=== PATIENT | female | born 1985 | race Hispanic/Latino ===

== ENCOUNTER 2017-01-28 10:31 | Emergency (ER) | payer OTHER ==
[2017-01-28 10:38] VITALS: BP 102/69; PULSE 77; TEMP 98
[2017-01-28 10:53] VITALS: O2SAT 98
--- NOTE | 2017-01-28 11:08 | ED PDOC ---
HPI: Abdomen Time Seen by Provider: 01/28/17 10:59 Chief Complaint (Nursing): Abdominal Pain Chief Complaint (Provider): with abdominal pain History Per: Patient Additional Complaint(s): 31 year old female currently 11 weeks presents to ED with diffuse cramping abdominal pain that started this morning with no associated bleeding. Patient denies any dysuria or hematuria. Patient has a doppler at home and this morning she tried to locate the heartbeat and she was unable to. She called her OB, Dr. Davidson who told her to come to ED. Past Medical History Reviewed: Historical Data, Nursing Documentation, Vital Signs Vital Signs: Last Vital Signs Temp 98 F 01/28/17 10:37 Pulse 77 01/28/17 10:37 Resp BP 102/69 01/28/17 10:37 Pulse Ox 98 01/28/17 11:30 - Medical History PMH: Hypothyroidism Other PMH: (1 miscarriage, lost 1 fetus in utero during second ) - Surgical History Surgical History: Hernia Repair - Family History Family History: States: No Known Family Hx - Living Arrangements Living Arrangements: With Family - Social History Current smoker - smoking cessation education provided: No Alcohol: None Drugs: Denies - Home Medications Home Medications: Ambulatory Orders Medication Instructions Recorded Ca/Cholecalciferol/Fe/Folic 1 1 tab PO DAILY 04/03/15 [Basic's Vitamins] Levothyroxine [Levoxyl] 0.125 mg PO DAILY 04/03/15 Metformin HCl [Metformin] 1,000 mg PO BID 04/03/15 - Allergies Allergies/Adverse Reactions: Allergies Allergy/AdvReac Type Severity Reaction Status Date / Time No Known Allergies Allergy Verified 04/03/15 14:58 Review of Systems ROS Statement: Except As Marked, All Systems Reviewed And Found Negative Constitutional: Negative for: Fever Cardiovascular: Negative for: Chest Pain Gastrointestinal: Positive for: Abdominal Pain. Negative for: Nausea, Vomiting Genitourinary Female: Positive for: Pelvic Pain. Negative for: Dysuria, Frequency, Incontinence, Hematuria, Vaginal Discharge, Vaginal Bleeding Physical Exam - Reviewed Nursing Documentation Reviewed: Yes Vital Signs Reviewed: Yes - Physical Exam Appears: Positive for: Well, Non-toxic, No Acute Distress Skin: Negative for: Rash Cardiovascular/Chest: Positive for: Regular Rate, Rhythm Respiratory: Positive for: Normal Breath Sounds Gastrointestinal/Abdominal: Positive for: Other (gravid non-tender abdomen) Back: Negative for: L CVA Tenderness, R CVA Tenderness Extremity: Negative for: Pedal Edema Neurologic/Psych: Positive for: Alert, Oriented - Laboratory Results Result Diagrams: 01/28/17 11:30 - ECG O2 Sat by Pulse Oximetry: 98 Pulse Ox Interpretation: Normal - Other Rad OB US X-Ray: Read By Radiologist X-Ray Interpretation: see below Medical Decision Making Medical Decision Makin31 year old with abd pain Plan: CBC CMP Beta quant Urine dip OB US US: Impression: Live single intrauterine with estimated gestational age 11 weeks 3 days. heart rate 169 bpm. Advise an anomaly screen at 16- 18 weeks gestational age Patient is aware of all diagnostic testing results, all questions answered. CMP would not result electronically, lab faxed results, reviewed by me, all within normal limits. Case was also discussed with patient's OB, Dr. Davidson. He is aware of all diagnostic testing results and states to have patient call his office on Tuesday for follow up visit for next week. Disposition - Clinical Impression Clinical Impression: Abdominal pain during - Patient ED Disposition Is Patient to be Admitted: No Counseled Patient/Family Regarding: Studies Performed, Diagnosis, Need For Followup - Disposition Referrals: Kem Davidson MD [Staff Provider] - Disposition: Routine/Home Disposition Time: 13:10 Condition: STABLE Additional Instructions: Call OB office on Tuesday to arrange for follow up visit for next week. Instructions: Abdominal Pain in (ED) Results - Lab Results Lab Results: 01/28/17 01/28/17 11:35 11:30 WBC 8.9 D RBC 4.11 Hgb 12.3 Hct 36.4 MCV 88.6 D MCH 30.0 MCHC 33.8 RDW 13.9 Plt Count 299 D MPV 7.8 Neut % (Auto) 69.0 Lymph % (Auto) 22.3 Terrell % (Auto) 7.3 Eos % (Auto) 1.0 Baso % (Auto) 0.4 Neut # 6.1 Lymph # 2.0 Terrell # 0.6 Eos # 0.1 Baso # 0.0 Urine Color Straw Urine Clarity Clear Urine pH 6.0 Ur Specific [place] 1.008 Urine Protein Negative Urine Glucose (UA) Neg Urine Ketones Negative Urine Blood Negative Urine Nitrate Negative Urine Bilirubin Negative Urine Urobilinogen 0.2-1.0 Ur Leukocyte Esterase Trace Urine RBC (Auto) 1 Urine Microscopic WBC 1 Ur Squamous Epith Cells 1 Urine Bacteria Rare
[2017-01-28 12:28] LABS: BASO % 0.4 % (0.0-2.0); EOS # 0.1 K/uL (0.0-0.7); HEMATOCRIT 36.4 % (34.0-47.0); LYMPH % 22.3 % (20.0-40.0); MEAN CELL VOLUME 88.6 fl (81.0-99.0); MEAN CORPUSCULAR HGB CONC 33.8 g/dL (33.0-37.0); MEAN PLATELET VOLUME 7.8 fl (7.2-11.7); MONO # 0.6 K/uL (0.0-0.8); MONO % 7.3 % (0.0-10.0); NEUT # 6.1 K/uL (1.8-7.0); RED CELL DISTRIBUTION WIDTH 13.9 % (11.5-14.5); WHITE BLOOD COUNT 8.9 K/uL (4.8-10.8)
[2017-01-28 12:34] LABS: RBC URINE 1 /hpf (0-3); URINE BACTERIA RARE (<OCC); URINE BILIRUBIN NEGATIVE (NEGATIVE); URINE BLOOD NEGATIVE (NEGATIVE); URINE COLOR STRAW (YELLOW); URINE GLUCOSE (UA) NEG (Normal); URINE KETONE NEGATIVE (NEGATIVE); URINE LEUKOCYTE ESTERASE TRACE Leu/uL (Negative); URINE PROTEIN NEGATIVE (NEGATIVE); URINE UROBILINOGEN 0.2-1.0 mg/dL (0.2-1.0); WBC URINE 1 /hpf (0-5)
--- NOTE | 2017-01-28 12:35 | US ---
Indication: 11 weeks with cramping abdominal pain Comparison: None available Technique: Transvaginal pelvic ultrasound Findings: There is a single intrauterine fetus present. 4 mm yolk sac. The gestational sac measures 5.7 cm and is compatible with a gestational age of 11 weeks 5 days. The crown-rump length measures 4.1 cm and is compatible with a gestational age of 11 weeks 0 days. There is heart motion which measured 169 BPM. The right ovary measures 3.1 x 1.2 x 2.5 cm. The left ovary measures 2.5 x 1.5 x 2.1 cm and contains 1.3 x 10.9 x 1.5 cm probable corpus luteal cyst. Blood flow was demonstrated to both ovaries. Cervix length measures approximately 4.6 cm. Impression: Live single intrauterine with estimated gestational age 11 weeks 3 days. heart rate 169 bpm. Advise an anomaly screen at 16-18 weeks gestational age
[2017-01-28 12:37] LABS: ALB/GLOB RATIO 1.4 (1.0-2.1); ALKALINE PHOSPHATASE 42 U/L (38-126); ALT/SGPT 29 U/L (9-52); AST/SGOT 24 U/L (14-36); BLOOD UREA NITROGEN 9 mg/dl (7-17); CARBON DIOXIDE 24 mmol/L (22-30); CHLORIDE 103 mmol/L (98-107); GFR AFRICAN-AMERICAN > 60; GLUCOSE,RANDOM 85 mg/dL (65-105); SODIUM 137 mmol/l (132-148); TOTAL PROTEIN 7.4 G/DL (6.3-8.2)
== END 2017-01-28 13:20 | disposition home or self-care (01) ==
LOC: H.ER 10:31
DX: O26.891 Other specified pregnancy related conditions, first trimester (principal); R10.9 Unspecified abdominal pain; Z3A.11 11 weeks gestation of pregnancy

== ENCOUNTER 2017-05-16 16:21 | Emergency (ER) | payer OTHER ==
[2017-05-16 22:43] VITALS: BP 99/64; PULSE 77
== END 2017-05-16 18:30 | disposition home or self-care (01) ==
LOC: H.EROB2 16:21
DX: O47.02 False labor before 37 completed weeks of gestation, second trimester (principal); Z3A.27 27 weeks gestation of pregnancy

== ENCOUNTER 2017-07-06 09:23 | Emergency (ER) | payer OTHER ==
[2017-07-06 09:43] VITALS: BP 108/62
[2017-07-06 10:50] LABS: BASO % 0.2 % (0.0-2.0); EOS # 0.1 K/uL (0.0-0.7); EOS % 0.4 % (0.0-4.0); HEMATOCRIT 32.7 % (34.0-47.0); LYMPH # 1.7 K/uL (1.0-4.3); LYMPH % 12.3 % (20.0-40.0); MEAN CELL VOLUME 88.8 fl (81.0-99.0); MEAN CORPUSCULAR HEMOGLOBIN 30.4 pg (27.0-31.0); MEAN CORPUSCULAR HGB CONC 34.3 g/dL (33.0-37.0); MEAN PLATELET VOLUME 8.5 fl (7.2-11.7); MONO # 0.9 K/uL (0.0-0.8); MONO % 6.3 % (0.0-10.0); NEUT # 10.9 K/uL (1.8-7.0); NEUT % 80.8 % (50.0-75.0); RED CELL DISTRIBUTION WIDTH 13.7 % (11.5-14.5); WHITE BLOOD COUNT 13.5 K/uL (4.8-10.8)
[2017-07-06 11:01] LABS: BLOOD UREA NITROGEN 7 mg/dl (7-17); CALCIUM 8.8 mg/dL (8.4-10.2); CARBON DIOXIDE 22 mmol/L (22-30); CHLORIDE 107 mmol/L (98-107); GFR AFRICAN-AMERICAN > 60; GLUCOSE,RANDOM 108 mg/dL (65-105); POTASSIUM 3.9 MMOL/L (3.6-5.0); SODIUM 136 mmol/l (132-148)
--- NOTE | 2017-07-06 11:09 | ED PDOC ---
HPI: SOB/CHF/COPD Time Seen by Provider: 07/06/17 09:54 Chief Complaint (Nursing): Shortness Of Breath Chief Complaint (Provider): Shortness of breath, congestion, dizziness History Per: Patient History/Exam Limitations: no limitations Onset/Duration Of Symptoms: Days, Persistent Additional Complaint(s): 31yo female, , no past medical history, approximately 34 weeks , presents to ED with complaints of congestion, shortness of breath and dizziness which has been worsening over the past week. Patient states it has been increasingly difficult to sleep at night; reports she tried nasal saline with no relief. She states this morning while attempting to get ready for work, she had a pre-syncopal episode, prompting the visit. Patient states her current is unremarkable and she follows up with Dr. Davidson. Patient also states she felt her baby move normally. She additionally reports her first was normal as well. Patient reports mild bilateral leg swelling, denies any vaginal bleeding, contractions, chest pain. No other complaints. Past Medical History Reviewed: Historical Data, Nursing Documentation, Vital Signs Vital Signs: Last Vital Signs Temp 98.1 F 07/06/17 09:40 Pulse 108 H 07/06/17 09:40 Resp 18 07/06/17 09:40 BP 108/62 07/06/17 09:40 Pulse Ox 99 07/06/17 09:40 - Medical History PMH: Hypothyroidism - Surgical History Surgical History: Hernia Repair - Family History Family History: States: No Known Family Hx - Living Arrangements Living Arrangements: With Family - Social History Current smoker - smoking cessation education provided: No Ex-Smoker (has not smoked in the last 12 months): No Alcohol: None Drugs: Denies - Home Medications Home Medications: Ambulatory Orders Medication Instructions Recorded Ca/Cholecalciferol/Fe/Folic 1 1 tab PO DAILY 04/03/15 [Basic's Vitamins] Levothyroxine [Levoxyl] 0.125 mg PO DAILY 04/03/15 Metformin HCl [Metformin] 1,000 mg PO BID 04/03/15 - Allergies Allergies/Adverse Reactions: Allergies Allergy/AdvReac Type Severity Reaction Status Date / Time No Known Allergies Allergy Verified 07/06/17 09:40 Review of Systems ROS Statement: Except As Marked, All Systems Reviewed And Found Negative ENT: Positive for: Nose Congestion Cardiovascular: Negative for: Chest Pain Respiratory: Positive for: Cough, Shortness of Breath Genitourinary Female: Negative for: Vaginal Bleeding, Other (contractions) Musculoskeletal: Positive for: Other (bilateral leg swelling) Neurological: Positive for: Dizziness Physical Exam - Reviewed Nursing Documentation Reviewed: Yes Vital Signs Reviewed: Yes - Physical Exam Appears: Positive for: Non-toxic, No Acute Distress Head Exam: Positive for: ATRAUMATIC, NORMAL INSPECTION, NORMOCEPHALIC Skin: Positive for: Normal Color. Negative for: Pallor Eye Exam: Positive for: Normal appearance ENT: Positive for: Pharyngeal Erythema, Other (right nasal turbinate cloggy and edematous; left nasal turbinate erythematous but clear.). Negative for: Tonsillar Exudate Neck: Positive for: Supple Cardiovascular/Chest: Positive for: Regular Rate, Rhythm Respiratory: Positive for: Normal Breath Sounds. Negative for: Respiratory Distress Gastrointestinal/Abdominal: Positive for: Soft, Other (gravid uterus). Negative for: Tenderness - Laboratory Results Result Diagrams: 07/06/17 10:40 07/06/17 10:40 - ECG ECG: Positive for: Interpreted By Me, Viewed By Me ECG Rhythm: Positive for: Normal QRS, Sinus Rhythm. Negative for: ST/T Changes Rate: 97 O2 Sat by Pulse Oximetry: 99 (RA) Pulse Ox Interpretation: Normal Medical Decision Making Medical Decision Making: Time: 1021 Impression: Rule out anemia Plan: -- Labs to rule out anemia -- Cardiac montior -- monitor in OB ED Reassess Scribe Attestation: Documented by Vicky Brown acting as a scribe for Saji Al DO. Provider Attestation: All medical record entries made by the Scribe were at my direction and personally dictated by me. I have reviewed the chart and agree that the record accurately reflects my personal performance of the history, physical exam, medical decision making, and the department course for this patient. I have also personally directed, reviewed, and agree with the discharge instructions and disposition. Disposition - Disposition
--- NOTE | 2017-07-06 12:51 | CARD ---
APPROVED REPORT EKG Measurement Heart [id number] <Conclusion> Normal sinus rhythm Possible Left atrial enlargement Borderline ECG
--- NOTE | 2017-07-06 14:40 | OBHP ---
Datetime: 07/06/2017 14:35 IP Adm Impression: , intrauterine ; No Active Labor IP Admit Plan: Observation/Evaluation; Discharge home Admit Comment, IP Provider: The patient is a 2 para 1 estimated due date 08/16/2017 estimate d gestational age 34 weeks patient presented to emergency room complaining of cough and congestion ti mes several days duration. Patient was evaluated in the emergency room and then transferred to labor and delivery for evaluation. Patient reports good movement no vaginal bleeding or leakage of fluid patient's sister care has been unremarkable. Past medical history hypothyroid Medications vitamins and Synthroid No known drug allergies Social history denies alcohol tobacco use Past surgical history hernia repair Review of systems patient denies headache chest pain palpitations nausea vomiting diarrhea vaginal bleeding heat or cold intolerance easy bruisability musculoskeletal or neurological complaints Vital signs stable afebrile Physical exam seeing its Intrauterine at 34 weeks viral syndrome NST reactive Patient noted to have occasional uterine contractions patient exam his cervix closed posterior cole g Patient to follow up with PMDD tomorrow labor precautions Pelvic Type - PN: Adequate Extremities - PN: Normal Abdomen - PN: Normal Back - PN: Normal Breast - PN: Normal Lungs - PN: Normal Heart - PN: Normal Thyroid - PN: Normal Neurologic - PN: Normal HEENT - PN: Normal General - PN: Normal FHR - Baseline A Provider: 145 Gestation - Est Wks by US: 34.0 Pool Provider: Negative EGA AdmitDate IP: 34.1 Vital Signs Provider: Reviewed IP Chief Complaint: Other NICHD Variability Prov Fetus A: Moderate 6-25bpm NICHD Accel Fetus A IP Provider: 10X10 FHR Category Provider Fetus A: Category I NICHD Decel Fetus A IP Provider: None Dilatation, Provider: 0 Effacement, Provider: 0 Station, Provider: -2 Genitourinary Exam: Normal DTRs - PN: Normal
[2017-07-06 19:32] VITALS: PULSE 88; RESP 17; TEMP 98.5; O2SAT 98
== END 2017-07-06 15:10 | disposition home or self-care (01) ==
LOC: H.EROB2 09:23 → H.ER 09:23 → H.EROB 12:38 → H.ER 12:38 → H.EROB2 15:10
DX: O26.93 Pregnancy related conditions, unspecified, third trimester (principal); R10.2 Pelvic and perineal pain; R05 Cough; O47.03 False labor before 37 completed weeks of gestation, third trimester; Z3A.34 34 weeks gestation of pregnancy

== ENCOUNTER 2017-07-31 15:14 | Emergency (ER) | payer OTHER ==
--- NOTE | 2017-07-31 17:20 | OBHP ---
Datetime: 07/31/2017 17:09 IP Adm Impression: Term, intrauterine IP Admit Plan: Observation/Evaluation; Discharge home Admit Comment, IP Provider: Pt of dr chadwick. The patient is a 31 yo 2 para 1 estimated due date 08/16/2017 by lmp _ 12wk us presents at estimated gestational age 37.5 weeks w/ c/o increased movement since last night. She states usually she is concerned about decreased FM with this pr eg but since last night she has had increased fm. She states currently FM is normal and not increase d. She denies prom, vag bleeding. 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 pt seen earlier by dr singleton Extremities - PN: Normal Abdomen - PN: Normal Lungs - PN: Normal Neurologic - PN: Normal HEENT - PN: Normal General - PN: Normal FHR - Baseline A Provider: 120 EGA AdmitDate IP: 37.5 Vital Signs Provider: Within Normal Limits IP Chief Complaint: Other NICHD Variability Prov Fetus A: Moderate 6-25bpm NICHD Accel Fetus A IP Provider: 15X15 FHR Category Provider Fetus A: Category I
[2017-08-02 12:38] VITALS: BP 122/76; PULSE 71
== END 2017-07-31 17:10 | disposition home or self-care (01) ==
LOC: H.EROB2 15:14
DX: O36.8931 Maternal care for other specified fetal problems, third trimester, fetus 1 (principal); Z3A.37 37 weeks gestation of pregnancy; O76 Abnormality in fetal heart rate and rhythm complicating labor and delivery

== ENCOUNTER 2017-08-15 10:23 | Inpatient (IN) | payer OTHER ==
[2017-08-15 11:23] VITALS: BMI 25.5
[2017-08-15 12:44] LABS: BASO % 0.2 % (0.0-2.0); EOS % 0.3 % (0.0-4.0); HEMOGLOBIN 11.9 g/dL (12.0-16.0); LYMPH # 2.1 K/uL (1.0-4.3); LYMPH % 16.2 % (20.0-40.0); MEAN CELL VOLUME 89.3 fl (81.0-99.0); MEAN CORPUSCULAR HEMOGLOBIN 30.5 pg (27.0-31.0); MEAN CORPUSCULAR HGB CONC 34.1 g/dL (33.0-37.0); MEAN PLATELET VOLUME 9.1 fl (7.2-11.7); MONO # 0.9 K/uL (0.0-0.8); NEUT # 9.8 K/uL (1.8-7.0); NEUT % 76.3 % (50.0-75.0); NRBC % 0.1 % (0.0-0.0); RBC 3.89 Mil/uL (3.80-5.20); RED CELL DISTRIBUTION WIDTH 13.8 % (11.5-14.5); WHITE BLOOD COUNT 12.9 K/uL (4.8-10.8)
[2017-08-15] MEDS: Lactated Ringer's 1,000 ML IV SCH (13:05)
--- NOTE | 2017-08-15 21:52 | OBADHP ---
Datetime: 08/15/2017 21:43 IP Chief Complaint Other: hypothyroidism IP Adm Impression Other: hypothyroidism/ decreased FM in very early labor Admit Comment, IP Provider: admit to unit and start augumentation with cervidil Discussed with pt an d agreed Extremities - PN: Normal Abdomen - PN: Abnormal Back - PN: Normal Breast - PN: Normal Lungs - PN: Normal Heart - PN: Normal Thyroid - PN: Normal Neurologic - PN: Normal HEENT - PN: Normal General - PN: Normal Presentation-Admit: cephalic FHR - Baseline A Provider: 150 Membranes, Provider: Intact Contraction Comments Provider: irregular Comments, ACOG Physical Exam: Abd gravid NT fundus at term, Ext no calf tenderness Gestation - Est Wks by US: 39w 6d Pool Provider: Negative IP Hx Assessment: The History has been Reviewed and is Current IP Chief Complaint: Decreased movement; Maternal discomfort; Other NICHD Variability Prov Fetus A: Moderate 6-25bpm NICHD Accel Fetus A IP Provider: 10X10 NICHD Decel Fetus A IP Provider: None Dilatation, Provider: 1cm Effacement, Provider: 40% Genitourinary Exam: Normal DTRs - PN: Normal EGA AdmitDate IP: 39.6 IP Adm Impression: Term, intrauterine IP Admit Plan: Admit to unit; Initiate labor augmentation protocol Datetime: 07/31/2017 17:09 Vital Signs Provider: Within Normal Limits FHR Category Provider Fetus A: Category I Datetime: 07/06/2017 14:35 Pelvic Type - PN: Adequate Station, Provider: -2
[2017-08-16] MEDS: Lactated Ringer's 1,000 ML IV ONE ×2 (05:55→06:15)
[2017-08-16] MEDS ORDERED: Oxytocin 30 UNITS in Sodium Chloride 0.9% 500 ML IV ONE (05:56)
[2017-08-16] MEDS ORDERED: Fentanyl/Bupivacaine HCl 250 ML EPI ONE (05:59)
[2017-08-16] MEDS ORDERED: Bupivacaine HCl 0.25% PF (10 ml) Inj ONE (06:19)
[2017-08-16] MEDS: Lactated Ringer's 1,000 ML IV SCH ×2 (06:53→07:15)
[2017-08-16] MEDS ORDERED: Lidocaine 2% Inj (20ml) ONE ×2 (07:26→07:55)
[2017-08-16] MEDS ORDERED: Lidocaine 2% PF (10 ml) Amp ONE (07:27)
[2017-08-16] MEDS ORDERED: Oxycodone/Acetaminophen 5/325 mg Tab PO PRN ×2 (08:30→13:09)
[2017-08-16] MEDS ORDERED: Benzocaine/Menthol SPRAY TOP PRN ×2 (08:30→13:09)
--- NOTE | 2017-08-16 08:30 | OBDS ---
MATERNAL INFORMATION Delivery Anesthesia: Epidural Estimated Blood Loss (ml): 200-250 Other Maternal Complications: thyroid disease Provider Comments: Delivered a living baby girl appears term cried spontaneously nuchal cord x1 loos e, 9/9, AF clear Placenta complete and intact Small laceration repaired as above Uterus contrac kirstie well, rectal exam done no defects Tolerated procedure well no complications LABOR SUMMARY EDC: 08/16/2017 00:00 No. Babies in Womb: 1 Attempted: No Labor Anesthesia: Epidural LABOR INFORMATION Reason for Induction: Not Applicable; Other Reason for Induction Other: Decreased movement as per MD Office vst 08/15/17 Cervical Ripening Agents: Cervidil Oxytocin: N/A Group B Beta Strep: Negative Steroids Given: None Reason Steroids Not Administered: Not Applicable VAGINAL DELIVERY Episiotomy: None Laceration Extension: First Degree Laceration Type: Perineal; Vaginal Laceration Repair: Yes Laceration Repair Note: small vaginal-perineal tear noted first dg repaired with 2-0 chromic without any complication Sponge Count Correct: Yes Sharps Count Correct: Yes Count Comment: count correct verified by RN CSECTION DELIVERY Primary Indication: N/A Secondary Indication: N/A CSection Incision: N/A Uterine Closure: N/A BABY A INFORMATION Forceps: N/A Vacuum Extraction: N/A Shoulder Dystocia : No PRESENTATION/POSITION BABY A Presentation: Cephalic Cephalic Presentation: Vertex Vertex Position: Left Occipital Anterior Breech Presentation: N/A PLACENTA INFORMATION BABY A Placenta Method of Delivery: Spontaneous Placenta Status: Delivered CORD INFORMATION BABY A Nuchal Cord : Around Neck x1, Loose
[2017-08-17 06:25] LABS: HEMOGLOBIN 9.7 g/dL (12.0-16.0); MEAN CELL VOLUME 90.4 fl (81.0-99.0); MEAN CORPUSCULAR HEMOGLOBIN 29.6 pg (27.0-31.0); MEAN CORPUSCULAR HGB CONC 32.8 g/dL (33.0-37.0); RBC 3.28 Mil/uL (3.80-5.20); RED CELL DISTRIBUTION WIDTH 13.9 % (11.5-14.5); WHITE BLOOD COUNT 13.5 K/uL (4.8-10.8)
[2017-08-17] MEDS: Levothyroxine 125 MCG TAB PO SCH (06:29)
[2017-08-17] MEDS ORDERED: Levothyroxine 125 MCG TAB PO SCH (06:30)
--- NOTE | 2017-08-17 07:25 | OBPPN ---
Datetime: 08/17/2017 07:21 PP Pain Prov: Within normal limits PP Pain Prov comment: No SOB, chest or leg pains PP Nausea Prov: Denies PP Flatus Prov: Yes PP Nausea Prov comment: Denies dizziness or weakness PP Breasts Prov: Normal PP Lungs Prov: Normal PP Abdomen/Uterus Prov: Abnormal PP Lochia Prov: Normal PP Vulva/Perineum Prov: Abnormal PP CVA Tenderness Prov: Normal PP Extremities Prov: Normal PP C/S Incision Prov: Not Applicable PP Progress Prov: Normal PP Comments Phys Exam Prov: breast NE, NT; abd soft ND, fundus firm below the umb NT, Perineum repa ired Extr no calf tenderness PP Impression Prov: Normal progression PP Plan Prov: Continue present management PP Progress Note Prov: Start po iron and continue PP care OOB and ambulation IP PP Procedures: None
[2017-08-18] MEDS: Levothyroxine 125 MCG TAB PO SCH (06:42)
--- NOTE | 2017-08-18 07:47 | OBPPN ---
Datetime: 08/18/2017 07:37 PP Pain Prov: Within normal limits PP Pain Prov comment: No SOB, chest pains or leg pains PP Nausea Prov: Denies PP Flatus Prov: Yes PP Nausea Prov comment: voiding well PP Breasts Prov: Normal PP Lungs Prov: Normal PP Abdomen/Uterus Prov: Abnormal PP Lochia Prov: Normal PP Vulva/Perineum Prov: Abnormal PP CVA Tenderness Prov: Normal PP Extremities Prov: Normal PP C/S Incision Prov: Not Applicable PP Progress Prov: Normal PP Comments Phys Exam Prov: breast not engorged NT, abd soft ND fundus firm below the umb, NT; Perin eum repaired Ext no calf tenderness PP Impression Prov: Normal progression PP Plan Prov: Discharge PP Progress Note Prov: D/c home with instructions and follow up in office Continue PNC vit and iron IP PP Procedures: None Vital Signs Provider PP: Reviewed
--- NOTE | 2017-08-18 07:49 | OBDCSUM ---
Datetime: 08/18/2017 07:45 Discharged to, Provider: Home Follow up at, Provider: Dr Davidson Disch Instr Activity: Bedrest; May be up to bathroom; May be up for meals; May Shower Disch Instr Diet: Regular Discharge Instructions, Provider: Routine instructions given Discharge Diagnosis, Provider: Term Delivered Discharge Time: 08/18/2017 07:45 Follow up in weeks, Provider: 4-6 wks Disch Referrals: None Contraception discussed, Prov: Yes Disch Activity Restrictions: No exercising; No lifting; No driving; Minimize walking; Minimize stair -climbing; No sexual activity; Nothing in vagina - Laura, tampons, douche Discharge Comment, Provider: Continue PNV vit and iron and bed rest and pelvic rest Discharge Diagnosis Prov Other: hypothyroid disease Contraception after Delivery: Undecided
[2017-08-18 17:34] VITALS: BP 105/64; PULSE 77; RESP 18; TEMP 98.4; O2SAT 99
== END 2017-08-18 12:40 | disposition home or self-care (01) | DRG 775 ==
LOC: H.EROB2 10:23 → H.ERHOLD 11:11 → H.L&D 11:38 → H.OB/GYN 08-16 12:50
PROVIDERS: ADMIT Specialist; ATTEND Specialist
PROC: 0HQ9XZZ Repair Perineum Skin, External Approach (ICD-10-PCS; principal; 2017-08-15)
PROC: 10E0XZZ Delivery of Products of Conception, External Approach (ICD-10-PCS; 2017-08-15)
PROC: 4A1HXCZ Monitoring of Products of Conception, Cardiac Rate, External Approach (ICD-10-PCS; 2017-08-15)
DX: O36.8190 Decreased fetal movements, unspecified trimester, not applicable or unspecified (principal); E03.9 Hypothyroidism, unspecified; Z37.0 Single live birth; O99.284 Endocrine, nutritional and metabolic diseases complicating childbirth; O69.81X0 Labor and delivery complicated by cord around neck, without compression, not applicable or unspecified; Z3A.40 40 weeks gestation of pregnancy; O70.0 First degree perineal laceration during delivery